=== PATIENT | female | born 1955 | race Caucasian/White ===

== ENCOUNTER 2023-07-23 16:49 | Emergency (ER) | payer OTHER ==
[~2023-07-23] VITALS: Ht 160 cm; Wt 88.9 kg
[~2023-07-23 16:49] MED LIST: LIDO1ADH22 TP
[2023-07-23 17:15] VITALS: BP_SYST 126; PULSE 86; RESP 19; TEMP 97.5; O2SAT 98
[2023-07-23] MEDS ORDERED: NABU-138 PO (18:07)
[2023-07-23] MEDS ORDERED: ACYC400T19 PO (18:07)
[2023-07-23 18:33] VITALS: BP_SYST 126; PULSE 86; RESP 19; TEMP 97.5; O2SAT 98
== END 2023-07-23 18:33 | disposition home or self-care (01) ==
LOC: SED 16:49
DX: B02.9 Zoster without complications (principal); R21 Rash and other nonspecific skin eruption; I10 Essential (primary) hypertension; Z88.0 Allergy status to penicillin; Z79.899 Other long term (current) drug therapy
CPT/HCPCS: 99283